=== PATIENT | male | born 1960 | race Caucasian/White ===

== ENCOUNTER 2017-08-19 11:30 | Outpatient (CLI) | payer BC | END 2017-08-19 11:31 | disposition home or self-care (01) | LOC: LAB.WCP 11:30 | PROVIDERS: ATTEND Family Medicine | DX: R31.9 Hematuria, unspecified (principal); R10.9 Unspecified abdominal pain | CPT/HCPCS: 87086 ==

== ENCOUNTER 2017-08-19 13:16 | Outpatient (CLI) | payer BC ==
[2017-08-19] MEDS ORDERED: IOPAMIDOL-300 100 ML VIAL ONE (13:35)
[2017-08-19] MEDS ORDERED: IOPAMIDOL-300 50 ML VIAL ONE (13:35)
[2017-08-19 13:58] LABS: BASOPHILS # (AUTO) 0.1 10^3/uL (0.0-0.1); BASOPHILS % (AUTO) 0.3 %; LYMPHOCYTES % (AUTO) 3.9 %; MEAN CORPUSCULAR HEMOGLOBIN 32.9 pg (27.0-31.0); MEAN CORPUSCULAR HGB CONC 34.2 g/dL (32.0-36.0); MEAN CORPUSCULAR VOLUME 96.1 fL (80.0-94.0); MEAN PLATELET VOLUME 11.2 fL (7.4-11.4); MONOCYTES # (AUTO) 1.7 10^3/uL (0.0-1.0); MONOCYTES % (AUTO) 6.5 %; NEUTROPHILS # (AUTO) 22.8 10^3/uL (1.5-6.6); NEUTROPHILS % (AUTO) 89.3 %; PLT - PLATELET COUNT 185 10^3/uL (130-450); RED BLOOD COUNT 4.27 10^6/uL (4.70-6.10); RED CELL DISTRIBUTION WIDTH 13.9 % (12.0-15.0); WHITE BLOOD COUNT 25.5 x10^3/uL (4.8-10.8)
[2017-08-19 14:14] LABS: ALBUMIN 4.3 g/dL (3.2-5.5); ALBUMIN/GLOBULIN RATIO 1.1 (1.0-2.2); BILIRUBIN,TOTAL 1.2 mg/dL (0.2-1.0); CALCIUM 9.2 mg/dL (8.5-10.3); CREATININE 0.7 mg/dL (0.6-1.2); TOTAL PROTEIN 8.2 g/dL (6.7-8.2)
[2017-08-19 14:16] LABS: RBC MORPHOLOGY (MULTIPLE) 1+ ANISOCYTOSIS (NORMAL)
--- NOTE | 2017-08-19 21:54 | CT Report ---
DATE OF SERVICE: 08/19/2017 CT OF THE ABDOMEN AND PELVIS WITH CONTRAST: 08/19/2017 CLINICAL INDICATION: Pain, hematuria. Axial CT images of the abdomen and pelvis were obtained with 100 mL Isovue 300 intravenously. In accordance with CT protocol optimization, one or more of the following dose reduction techniques w ere utilized for this exam: Automated exposure control, adjustment of mA and/or KV based on patient size , or use of iterative reconstructive technique. No previous CT is available for comparison. Limited evaluation of the lung bases is unremarkable. ABDOMEN: The liver, spleen, pancreas, kidneys, and adrenal glands are unremarkable. No bowel dilata tion, free gas, or free fluid is present. The gallbladder is not dilated. No abdominal adenopathy is pres ent. PELVIS: There is inflammation surrounding the mid sigmoid colon, with multiple diverticula present, compatible with uncomplicated sigmoid diverticulitis. No abscess or perforation is identified. The appendix is seen in the right lower quadrant, and is normal in caliber. No free fluid is seen. Osseous structures demonstrate degenerative changes. IMPRESSION: Uncomplicated sigmoid diverticulitis. TD: 08/19/2017 22:53
[2017-08-21] MEDS ORDERED: IOPAMIDOL-300 50 ML VIAL PO ONE (10:01)
[2017-08-21] MEDS ORDERED: IOPAMIDOL-300 100 ML VIAL IVP ONE (10:01)
== END 2017-08-19 13:17 | disposition home or self-care (01) ==
LOC: DI 13:16
PROVIDERS: ATTEND Family Medicine
DX: K57.32 Diverticulitis of large intestine without perforation or abscess without bleeding (principal); R31.9 Hematuria, unspecified; R10.9 Unspecified abdominal pain
CPT/HCPCS: 36415; 74177; 80053; 85025; 87086; Q9967

== ENCOUNTER 2017-08-22 09:46 | Outpatient (CLI) | payer BC ==
[2017-08-22 10:03] LABS: BASOPHILS # (AUTO) 0.1 10^3/uL (0.0-0.1); BASOPHILS % (AUTO) 0.6 %; EOSINOPHILS # (AUTO) 0.1 10^3/uL (0.0-0.7); EOSINOPHILS % (AUTO) 0.7 %; HGB - HEMOGLOBIN 13.6 g/dL (14.0-18.0); LYMPHOCYTES # (AUTO) 1.5 10^3/uL (1.5-3.5); MEAN CORPUSCULAR HEMOGLOBIN 32.4 pg (27.0-31.0); MEAN CORPUSCULAR HGB CONC 34.7 g/dL (32.0-36.0); MEAN CORPUSCULAR VOLUME 93.6 fL (80.0-94.0); MEAN PLATELET VOLUME 10.9 fL (7.4-11.4); MONOCYTES # (AUTO) 1.9 10^3/uL (0.0-1.0); MONOCYTES % (AUTO) 11.2 %; NEUTROPHILS # (AUTO) 13.3 10^3/uL (1.5-6.6); NEUTROPHILS % (AUTO) 78.5 %; PLT - PLATELET COUNT 212 10^3/uL (130-450); RED BLOOD COUNT 4.19 10^6/uL (4.70-6.10); RED CELL DISTRIBUTION WIDTH 13.8 % (12.0-15.0); WHITE BLOOD COUNT 16.9 x10^3/uL (4.8-10.8)
[2017-08-22 10:22] LABS: PLATELET ESTIMATE, MANUAL NORMAL (130-450,000) (NORMAL); PLATELET MORPHOLOGY NORMAL APPEARANCE (NORMAL); RBC MORPHOLOGY (MULTIPLE) NORMAL APPEARANCE (NORMAL)
--- NOTE | 2017-08-22 11:35 | XRAY Report ---
DATE OF SERVICE: 08/22/2017 SUPINE ABDOMEN: 08/22/2017 CLINICAL INDICATION: Diverticulitis. COMPARISON: CT 08/19/2017. FINDINGS: Supine views of the abdomen demonstrate a normal bowel gas pattern. No small bowel dilatation is present. No abnormal calcification is appreciated overlying either renal shadow. IMPRESSION: NO EVIDENCE OF BOWEL OBSTRUCTION. TD: 08/22/2017 12:34
== END 2017-08-22 09:47 | disposition home or self-care (01) ==
LOC: LAB 09:46
PROVIDERS: ATTEND Family Medicine
DX: K57.92 Diverticulitis of intestine, part unspecified, without perforation or abscess without bleeding (principal)
CPT/HCPCS: 36415; 74018; 85025